=== PATIENT | female | born 1995 | race Caucasian/White ===

== ENCOUNTER 2016-11-12 17:00 | Emergency (ER) | payer SELFPAY ==
[~2016-11-12] VITALS: Ht 180.3 cm; Wt 69.4 kg
[2016-11-12] MEDS ORDERED: SODIUM CHLORIDE 0.9% 1,000 ML IV ONE (17:24)
[2016-11-12] MEDS ORDERED: FAMOTIDINE 20 MG/2 ML IVP ONE (17:30)
[2016-11-12] MEDS ORDERED: ONDANSETRON 2MG/ML, 2ML IVPush ONE (17:30)
[2016-11-12] MEDS ORDERED: SODIUM CHLORIDE 0.9% 1,000ML IVBOLUS ONE (17:30)
[2016-11-12 18:34] LABS: BLOOD UREA NITROGEN 6 mg/dL (7-18)
[2016-11-12 18:54] LABS: ASPARTATE AMINO TRANSFERASE 16 U/L (15-37)
[2016-11-12] MEDS ORDERED: ONDANSETRON ODT 4 MG ONE (19:41)
[2016-11-12 20:37] VITALS: BP 119/73
[2016-11-12] MEDS ORDERED: ONDANSETRON ODT 4 MG PO ONE (21:00)
== END 2016-11-12 21:27 | disposition home or self-care (01) ==
LOC: ED 21:15
DX: O26.891 Other specified pregnancy related conditions, first trimester (principal); O21.9 Vomiting of pregnancy, unspecified; R11.0 Nausea; Z3A.01 Less than 8 weeks gestation of pregnancy
CPT/HCPCS: 36415; 76700; 76801; 80053; 81003; 83690; 84702; 85025; 99285; Q0162

== ENCOUNTER 2017-03-04 15:45 | Emergency (ER) | payer MEDICAID ==
[~2017-03-04] VITALS: Ht 177.8 cm; Wt 74.9 kg
[2017-03-04] MEDS ORDERED: SODIUM CHLORIDE 0.9% 1,000 ML IV ONE (16:12)
[2017-03-04] MEDS ORDERED: ONDANSETRON 2MG/ML, 2ML ONE ×2 (16:18→18:29)
[2017-03-04 16:27] LABS: HEMATOCRIT 42.3 % (34.6-47.8); HEMOGLOBIN 13.9 g/dL (11.7-16.4); WHITE BLOOD COUNT 17.2 x10^3/uL (3.4-10)
[2017-03-04] MEDS ORDERED: SODIUM CHLORIDE FLUSH 10ML SYR IVF ONE (16:30)
[2017-03-04] MEDS ORDERED: ONDANSETRON 2MG/ML, 2ML IVPush ONE ×2 (16:30→18:30)
[2017-03-04] MEDS ORDERED: SODIUM CHLORIDE 0.9% 1,000ML IVBOLUS ONE ×2 (16:30→18:30)
[2017-03-04 16:38] LABS: ASPARTATE AMINO TRANSFERASE 20 U/L (15-37); BLOOD UREA NITROGEN 7 mg/dL (7-18)
[2017-03-04 18:33] VITALS: BP 117/69
== END 2017-03-04 19:12 | disposition home or self-care (01) ==
LOC: ED 16:23
DX: O23.12 Infections of bladder in pregnancy, second trimester (principal); O26.892 Other specified pregnancy related conditions, second trimester; O21.9 Vomiting of pregnancy, unspecified; R11.0 Nausea; Z3A.22 22 weeks gestation of pregnancy
CPT/HCPCS: 36415; 76700; 76815; 80053; 81001; 83690; 85025; 87086; 93005; 96361; 96374; 96376; 99285; J2405; J7030

== ENCOUNTER 2017-06-26 16:21 | Inpatient (IN) | payer MEDICAID ==
[~2017-06-26] VITALS: Ht 175.3 cm; Wt 87.0 kg
[~2017-06-26 16:21] MED LIST: METOCLOPRAMIDE 5 MG/ML, 2ML ONE; PROPOFOL 10 MG/ML, 20ML ONE; SUCCINYLCHOLINE 20 MG/ML, 10ML ONE
[2017-06-26] MEDS ORDERED: OXYTOCIN 30U/ 0.9% NaCL 500ML 500 ML IV ONE (16:31)
[2017-06-26] MEDS ORDERED: SODIUM CITRATE/CITRIC ACID 30 ML UDC ONE (16:50)
[2017-06-26] MEDS ORDERED: METOCLOPRAMIDE 5 MG/ML, 2ML ONE (16:50)
[2017-06-26] MEDS ORDERED: ONDANSETRON 2MG/ML, 2ML ONE (16:54)
[2017-06-26] MEDS ORDERED: FENTANYL PF 100 MCG/2ML ONE ×3 (16:54→19:19)
[2017-06-26] MEDS ORDERED: PHENYLEPHRINE 10 MG/ML ONE (16:54)
[2017-06-26] MEDS ORDERED: OXYTOCIN 10 UNITS/ML, 1ML ONE (16:54)
[2017-06-26] MEDS ORDERED: EPHEDRINE 50 MG/ML, 1ML ONE (16:54)
[2017-06-26] MEDS ORDERED: DEXAMETHASONE 4 MG/ML, 1ML ONE (16:54)
[2017-06-26] MEDS ORDERED: KETOROLAC 30 MG/1 ML ONE (16:54)
[2017-06-26] MEDS ORDERED: SODIUM BICARBONATE 1 MEQ/ML, 50ML VIAL ONE (16:54)
[2017-06-26] MEDS ORDERED: CEFAZOLIN 1,000 MG ONE (16:54)
[2017-06-26 16:57] LABS: BASOPHILS % (AUTO) 0 % (0-1); EOSINOPHILS # (AUTO) 0.01 x10^3/uL (0-0.4); EOSINOPHILS % (AUTO) 0 % (1-7); LYMPHOCYTES # (AUTO) 1.78 x10^3/uL (1-3.4); LYMPHOCYTES % (AUTO) 12 % (22-44); MD NO; MEAN CORPUSCULAR HEMOGLOBIN 30.1 pg (27.0-34.8); MEAN CORPUSCULAR HGB CONC 33.1 g/dL (32.4-35.8); MEAN CORPUSCULAR VOLUME 90.9 fL (80-100); MEAN PLATELET VOLUME 11.1 fL (7.4-10.4); MONOCYTES # (AUTO) 0.72 x10^3/uL (0.2-0.8); MONOCYTES % (AUTO) 5 % (2-9); NEUTROPHILS # (AUTO) 12.92 x10^3/uL (1.8-6.8); NEUTROPHILS % (AUTO) 84 % (42-75); PLATELET COUNT 188 x10^3/uL (130-400); RED CELL DISTRIBUTION WIDTH 13.5 % (9.6-15.2)
[2017-06-26] MEDS ORDERED: SODIUM CITRATE/CITRIC ACID 30 ML UDC PO PRN (17:00)
[2017-06-26] MEDS ORDERED: METOCLOPRAMIDE 5 MG/ML, 2ML IVPush PRN (17:00)
[2017-06-26] MEDS ORDERED: NEWBORN KIT ONE (17:02)
[2017-06-26 17:05] LABS: ALANINE AMINOTRANSFERASE 11 U/L (12-78); ALBUMIN 2.5 g/dL (3.4-5.0); ANION GAP 9 mmol/L (5-15); CALCIUM 8.3 mg/dL (8.5-10.1); CHLORIDE 107 mmol/L (98-107); CREATININE 0.61 mg/dL (0.55-1.02)
[2017-06-26 17:07] LABS: ALKALINE PHOSPHATASE 118 U/L (45-117); BILIRUBIN,TOTAL 0.3 mg/dL (0.2-1.0); TOTAL PROTEIN 6.6 g/dL (6.4-8.2)
[2017-06-26] MEDS ORDERED: OXYTOCIN 30U/ 0.9% NaCL 500ML 500 ML ONE (17:21)
[2017-06-26 17:27] LABS: AMPHETAMINE SCREEN, URINE Negative (Negative); BARBITURATE SCREEN, URINE Negative (Negative); BENZODIAZEPINE SCREEN, URINE Negative (Negative); CANNABINOID SCREEN, URINE Positive (Negative); COCAINE SCREEN, URINE Negative (Negative); METHADONE SCREEN, URINE Negative (Negative); OPIATE SCREEN, URINE Negative (Negative)
[2017-06-26] MEDS: LACTATED RINGERS 1,000 ML IV SCH ×3 (17:55→19:15)
[2017-06-26 17:57] LABS: INTERNATIONAL NORMALIZED RATIO 0.87 (0.93-1.1); PROTHROMBIN TIME 9.1 Seconds (9.6-11.5)
[2017-06-26] MEDS ORDERED: MISOPROSTOL 200 MCG TABLET SL PRN (18:00)
[2017-06-26] MEDS ORDERED: IBUPROFEN 600 MG TABLET PO PRN (18:00)
[2017-06-26] MEDS ORDERED: ONDANSETRON 2MG/ML, 2ML IV PRN (18:00)
[2017-06-26] MEDS ORDERED: OXYcodone/APAP 5/325MG TABLET PO PRN (18:00)
[2017-06-26] MEDS ORDERED: ACETAMINOPHEN 325 MG TABLET PO PRN (18:00)
[2017-06-26] MEDS ORDERED: morphine SULFATE 10 MG/ML, 1ML IVPush PRN (18:00)
[2017-06-26] MEDS ORDERED: OXYcodone 5 MG/5 ML ORAL.SOL UDC PO PRN (18:30)
[2017-06-26] MEDS ORDERED: LABETALOL 5MG/ML, 20ML IV PRN (18:30)
[2017-06-26] MEDS ORDERED: ALBUTEROL SULFATE 2.5 MG/3 ML NPPB PRN (18:30)
[2017-06-26] MEDS ORDERED: hydrALAzine 20 MG/ML, 1ML IV PRN (18:30)
[2017-06-26] MEDS ORDERED: EPHEDRINE 50 MG/ML, 1ML IVPush PRN (18:30)
[2017-06-26] MEDS ORDERED: MEPERIDINE/PF 25MG/0.5ML IVPush PRN (18:30)
[2017-06-26] MEDS ORDERED: FENTANYL PF 100 MCG/2ML IV PRN (18:30)
[2017-06-26] MEDS ORDERED: HYDROmorphone 1 MG/ML, 1ML IV PRN (18:30)
[2017-06-26] MEDS ORDERED: MIDAZOLAM 1 MG/ML, 2ML IV PRN (18:30)
[2017-06-26] MEDS ORDERED: HYDROcodone/APAP 7.5-325MG/15ML UDC PO PRN (18:30)
[2017-06-26] MEDS ORDERED: ONDANSETRON 2MG/ML, 2ML IVPush PRN (18:30)
[2017-06-26] MEDS ORDERED: OXYcodone 5 MG/5 ML ORAL.SOL UDC ONE (18:39)
[2017-06-26] MEDS: OXYTOCIN 30U/ 0.9% NaCL 500ML 500 ML IV SCH (19:11)
[2017-06-26 20:15] VITALS: BP 132/86
[2017-06-27 00:10] VITALS: BP 112/64
[2017-06-27] MEDS: KETOROLAC 30 MG/1 ML IV SCH ×5 (00:15→18:16)
[2017-06-27] MEDS: OXYcodone IR 5MG TABLET PO PRN ×5 (00:15→18:16)
[2017-06-27] MEDS: LACTATED RINGERS 1,000 ML IV SCH ×6 (00:31→04:49)
[2017-06-27 03:07] LABS: MEAN CORPUSCULAR HEMOGLOBIN 30.3 pg (27.0-34.8); MEAN CORPUSCULAR HGB CONC 32.9 g/dL (32.4-35.8); MEAN CORPUSCULAR VOLUME 92.1 fL (80-100); MEAN PLATELET VOLUME 11.3 fL (7.4-10.4); PLATELET COUNT 174 x10^3/uL (130-400); RED CELL DISTRIBUTION WIDTH 13.7 % (9.6-15.2)
[2017-06-27 03:35] LABS: BASOPHILS # (AUTO) 0.01 x10^3/uL (0-0.1); BASOPHILS % (AUTO) 0 % (0-1); EOSINOPHILS % (AUTO) 0 % (1-7); LYMPHOCYTES # (AUTO) 1.12 x10^3/uL (1-3.4); LYMPHOCYTES % (AUTO) 4 % (22-44); MD SCAN; MONOCYTES # (AUTO) 0.37 x10^3/uL (0.2-0.8); MONOCYTES % (AUTO) 1 % (2-9); NEUTROPHILS # (AUTO) 24.76 x10^3/uL (1.8-6.8); NEUTROPHILS % (AUTO) 94 % (42-75)
[2017-06-27] MEDS: OXYTOCIN 30U/ 0.9% NaCL 500ML 500 ML IV SCH ×2 (03:55→04:50)
[2017-06-27 04:15] VITALS: BP 124/73
[2017-06-27] MEDS: DOCUSATE 100 MG CAPSULE PO PRN (08:20)
[2017-06-27] MEDS: PRENATAL VIT/IRON/FA 1 EACH TABLET PO SCH (08:20)
[2017-06-27 08:24] VITALS: BP 111/65
[2017-06-27 12:30] VITALS: BP 112/73
[2017-06-27 16:28] VITALS: BP 122/77
[2017-06-27 19:55] VITALS: BP 112/69
[2017-06-28] MEDS: KETOROLAC 30 MG/1 ML IV SCH ×3 (00:19→12:58)
[2017-06-28] MEDS: OXYcodone IR 5MG TABLET PO PRN ×3 (00:19→22:05)
[2017-06-28 08:00] VITALS: BP 115/70
[2017-06-28] MEDS: PRENATAL VIT/IRON/FA 1 EACH TABLET PO SCH (08:10)
[2017-06-28] MEDS: DOCUSATE 100 MG CAPSULE PO PRN ×2 (08:10→22:05)
[2017-06-28] MEDS ORDERED: IBUPROFEN 600 MG TABLET PO PRN (18:00)
[2017-06-28 20:20] VITALS: BP 116/69
[2017-06-29] MEDS: OXYcodone IR 5MG TABLET PO PRN (04:59)
[2017-06-29 07:00] VITALS: BP 116/71
[2017-06-29] MEDS: PRENATAL VIT/IRON/FA 1 EACH TABLET PO SCH (07:32)
[2017-06-29] MEDS: DOCUSATE 100 MG CAPSULE PO PRN (07:32)
[2017-06-29] MEDS ORDERED: OXYC-302 PO (14:15)
[2017-06-29] MEDS ORDERED: IBUP-1222 PO (14:15)
== END 2017-06-29 14:31 | disposition home or self-care (01) | DRG 766 ==
LOC: LDOP 16:21 → LDIP 16:31 → 2NW 19:40
PROVIDERS: ADMIT Obstetrics & Gynecology; ATTEND Obstetrics & Gynecology
PROC: 10D00Z1 Extraction of Products of Conception, Low, Open Approach (ICD-10-PCS; principal; 2017-06-26)
DX: O45.93 Premature separation of placenta, unspecified, third trimester (principal); F17.200 Nicotine dependence, unspecified, uncomplicated; N93.9 Abnormal uterine and vaginal bleeding, unspecified; O99.334 Smoking (tobacco) complicating childbirth; Z37.0 Single live birth; Z3A.38 38 weeks gestation of pregnancy
CPT/HCPCS: 36415; 80053; 80307; 84550; 85025; 85384; 85610; 85730; 86850; 86900; 86923; 88307; J0690; J1100; J1885; J2405; J2704; J3010; J0330; J2370; J2590; J2765; J7120

== ENCOUNTER 2020-06-19 14:07 | Outpatient (CLI) | payer MEDICAID ==
[~2020-06-19] VITALS: Ht 180.3 cm; Wt 75.4 kg
[~2020-06-19 14:07] MED LIST changes: +IBUP-1222 PO; -METOCLOPRAMIDE 5 MG/ML, 2ML ONE; +OXYC1TAB14 PO; -PROPOFOL 10 MG/ML, 20ML ONE; -SUCCINYLCHOLINE 20 MG/ML, 10ML ONE
[2020-06-19 14:39] VITALS: BP 129/85
[2020-06-19 15:09] LABS: MICROSCOPIC INDICATED
[2020-06-19 15:18] LABS: AMPHETAMINE SCREEN, URINE Positive (Negative); BARBITURATE SCREEN, URINE Negative (Negative); BENZODIAZEPINE SCREEN, URINE Negative (Negative); CANNABINOID SCREEN, URINE Positive (Negative); COCAINE SCREEN, URINE Negative (Negative); METHADONE SCREEN, URINE Negative (Negative); OPIATE SCREEN, URINE Negative (Negative)
[2020-06-19 16:14] LABS: CLUE CELLS PRESENT (NONE SEEN); WET PREP WBCS MANY (FEW)
[2020-06-19] MEDS ORDERED: PREN1TAB10 PO (16:40)
[2020-06-19] MEDS ORDERED: NITR100C56 PO (17:20)
[2020-06-19] MEDS ORDERED: METR500T PO (17:25)
[2020-06-19] MEDS ORDERED: AZIT500T10 PO (17:25)
== END 2020-06-19 17:33 | disposition home or self-care (01) ==
LOC: LDOP 14:07
PROVIDERS: ATTEND Obstetrics & Gynecology
DX: O26.893 Other specified pregnancy related conditions, third trimester (principal); R10.9 Unspecified abdominal pain; Z3A.35 35 weeks gestation of pregnancy
CPT/HCPCS: 59025; 80307; 81001; 87077; 87081; 87086; 87147; 87210; 87491; 87591; 87808

== ENCOUNTER 2020-07-08 13:31 | Inpatient (IN) | payer MEDICAID ==
[~2020-07-08] VITALS: Ht 180.3 cm; Wt 81.8 kg
[~2020-07-08 13:31] MED LIST changes: +AZIT500T10 PO; +CALCIUM CHLORIDE 10%, 10ML SYR ONE; +CEFAZOLIN 1,000 MG ONE; +EPHEDRINE 50 MG/ML, 1ML ONE; +METR500T PO; +MISOPROSTOL 200 MCG TABLET ONE; +NITR100C56 PO; +ONDANSETRON 2MG/ML, 2ML ONE; +PHENYLEPHRINE 10 MG/ML ONE; +PREN1TAB10 PO
[2020-07-08] MEDS ORDERED: METOCLOPRAMIDE 5 MG/ML, 2ML ONE (13:53)
[2020-07-08] MEDS ORDERED: OXYTOCIN 30U/ 0.9% NaCL 500ML 500 ML ONE ×2 (13:53→14:17)
[2020-07-08] MEDS ORDERED: SODIUM CITRATE/CITRIC ACID 15 ML UDC ONE (13:53)
[2020-07-08] MEDS ORDERED: morphine SULFATE/PF 0.5 MG/ML, 10ML ONE (13:55)
[2020-07-08] MEDS ORDERED: LACTATED RINGERS 1,000 ML IVBOLUS ONE (14:00)
[2020-07-08 14:08] LABS: AMPHETAMINE SCREEN, URINE Positive (Negative); BARBITURATE SCREEN, URINE Negative (Negative); BENZODIAZEPINE SCREEN, URINE Negative (Negative); CANNABINOID SCREEN, URINE Positive (Negative); COCAINE SCREEN, URINE Negative (Negative); METHADONE SCREEN, URINE Negative (Negative); OPIATE SCREEN, URINE Negative (Negative)
[2020-07-08 14:16] LABS: MEAN CORPUSCULAR HEMOGLOBIN 26.2 pg (27.0-34.8); PLATELET COUNT 253 x10^3/uL (130-400); RED BLOOD COUNT 3.43 x10^6/uL (3.82-5.3); RED CELL DISTRIBUTION WIDTH 15.8 % (9.6-15.2)
[2020-07-08 14:17] LABS: MD YES
[2020-07-08] MEDS ORDERED: NEWBORN KIT ONE (14:17)
[2020-07-08] MEDS ORDERED: SODIUM CITRATE/CITRIC ACID 30 ML UDC PO ONE (14:30)
[2020-07-08] MEDS ORDERED: METOCLOPRAMIDE 5 MG/ML, 2ML IV ONE (14:30)
[2020-07-08 14:39] LABS: BAND#(MANUAL) 0.84 x10^3/uL; BANDS%(MANUAL) 3 % (0-7); LYMPH#(MANUAL) 0.84 x10^3/uL (1-3.4); LYMPHS% (MANUAL) 3 % (22-44); MONOS#(MANUAL) 0.84 x10^3/uL (0.3-2.7); MONOS% (MANUAL) 3 % (2-9); SEG#(MANUAL) 25.39 x10^3/uL (1.8-6.8); SEGS% (MANUAL) 91 % (42-75)
[2020-07-08 14:40] LABS: <PLATELET ESTIMATE> ADEQUATE; ANISOCYTOSIS 1+; OVALOCYTES 1+
[2020-07-08 14:41] LABS: LARGE PLATELETS 1+; POLYCHROMASIA 1+
[2020-07-08] MEDS ORDERED: PHENYLEPHRINE 10 MG/ML ONE (14:54)
[2020-07-08] MEDS ORDERED: ONDANSETRON 2MG/ML, 2ML ONE (14:54)
[2020-07-08] MEDS ORDERED: EPHEDRINE 50 MG/ML, 1ML ONE (14:54)
[2020-07-08] MEDS ORDERED: OXYTOCIN 10 UNITS/ML, 1ML ONE (14:54)
[2020-07-08] MEDS ORDERED: CEFAZOLIN 1,000 MG ONE (14:54)
[2020-07-08] MEDS ORDERED: WATER-INJECTION,STERILE 10 ML IV ONE (14:54)
[2020-07-08] MEDS ORDERED: CALCIUM CHLORIDE 10%, 10ML SYR ONE (14:55)
[2020-07-08] MEDS ORDERED: EPINEPHRINE 1 MG/ML, 1ML ONE (14:55)
[2020-07-08] MEDS ORDERED: SIMETHICONE 80 MG CHEW TAB PO PRN (15:30)
[2020-07-08] MEDS ORDERED: KETOROLAC 30 MG/1 ML IM SCH (15:30)
[2020-07-08] MEDS: LACTATED RINGERS 1,000 ML IV SCH ×4 (15:30→23:04)
[2020-07-08] MEDS ORDERED: METHYLERGONOVINE 0.2 MG/ML IM PRN (15:30)
[2020-07-08] MEDS ORDERED: MISOPROSTOL 200 MCG TABLET PR PRN (15:30)
[2020-07-08] MEDS ORDERED: OXYcodone/APAP 5/325MG TABLET PO PRN (15:30)
[2020-07-08] MEDS: OXYTOCIN 30U/ 0.9% NaCL 500ML 500 ML IV SCH (15:40)
[2020-07-08] MEDS ORDERED: OXYcodone 5 MG/5 ML ORAL.SOL UDC PO PRN (16:30)
[2020-07-08] MEDS ORDERED: OXYcodone 5 MG/5 ML ORAL.SOL UDC ONE (16:34)
[2020-07-08 16:52] LABS: MEAN CORPUSCULAR HEMOGLOBIN 26.3 pg (27.0-34.8); MEAN CORPUSCULAR HGB CONC 31.5 g/dL (32.4-35.8); MEAN PLATELET VOLUME 11.4 fL (7.4-10.4); PLATELET COUNT 235 x10^3/uL (130-400); RED BLOOD COUNT 4.28 x10^6/uL (3.82-5.3); RED CELL DISTRIBUTION WIDTH 16.2 % (9.6-15.2)
[2020-07-08] MEDS ORDERED: KETOROLAC 30 MG/1 ML ONE (16:58)
[2020-07-08] MEDS ORDERED: MEPERIDINE/PF 25MG/0.5ML IM PRN (17:00)
[2020-07-08] MEDS ORDERED: MEPERIDINE/PF 50 MG/ML IM PRN (17:00)
[2020-07-08 17:05] LABS: MD YES
[2020-07-08 17:50] LABS: BAND#(MANUAL) 1.87 x10^3/uL; BANDS%(MANUAL) 6 % (0-7); LYMPH#(MANUAL) 2.18 x10^3/uL (1-3.4); LYMPHS% (MANUAL) 7 % (22-44); MONOS#(MANUAL) 2.18 x10^3/uL (0.3-2.7); MONOS% (MANUAL) 7 % (2-9); SEG#(MANUAL) 24.96 x10^3/uL (1.8-6.8); SEGS% (MANUAL) 80 % (42-75)
[2020-07-08 17:51] LABS: ANISOCYTOSIS 1+; POLYCHROMASIA 1+
[2020-07-08 17:52] LABS: <PLATELET ESTIMATE> ADEQUATE; LARGE PLATELETS 1+; ROULEAUX 1+
[2020-07-08] MEDS ORDERED: HYDROmorphone 1 MG/ML, 1ML INJ ONE (17:54)
[2020-07-08 18:00] VITALS: BP 134/84
[2020-07-08] MEDS ORDERED: HYDROmorphone 2 MG/ML, 1ML IVPush PRN (18:00)
[2020-07-08 20:00] VITALS: BP 124/71
[2020-07-08] MEDS: KETOROLAC 30 MG/1 ML IV SCH (22:23)
[2020-07-09] VITALS: BP 111/69
[2020-07-09] MEDS: OXYTOCIN 30U/ 0.9% NaCL 500ML 500 ML IV SCH (00:44)
[2020-07-09] MEDS: OXYcodone/APAP 5/325MG TABLET PO PRN ×5 (03:03→22:04)
[2020-07-09 04:17] VITALS: BP 125/77
[2020-07-09] MEDS: KETOROLAC 30 MG/1 ML IV SCH ×4 (04:18→21:55)
[2020-07-09 05:43] LABS: MEAN CORPUSCULAR HEMOGLOBIN 26.5 pg (27.0-34.8); MEAN CORPUSCULAR HGB CONC 32.4 g/dL (32.4-35.8); PLATELET COUNT 203 x10^3/uL (130-400); RED BLOOD COUNT 2.89 x10^6/uL (3.82-5.3); RED CELL DISTRIBUTION WIDTH 15.8 % (9.6-15.2)
[2020-07-09 06:44] LABS: MD YES
[2020-07-09 06:45] LABS: ANISOCYTOSIS 1+; BAND#(MANUAL) 0.73 x10^3/uL; BANDS%(MANUAL) 3 % (0-7); LYMPH#(MANUAL) 1.69 x10^3/uL (1-3.4); LYMPHS% (MANUAL) 7 % (22-44); MONOS#(MANUAL) 1.21 x10^3/uL (0.3-2.7); MONOS% (MANUAL) 5 % (2-9); POLYCHROMASIA 1+; SEG#(MANUAL) 20.57 x10^3/uL (1.8-6.8); SEGS% (MANUAL) 85 % (42-75)
[2020-07-09 06:46] LABS: <PLATELET ESTIMATE> ADEQUATE; LARGE PLATELETS 1+; OVALOCYTES 1+
[2020-07-09] MEDS: LACTATED RINGERS 1,000 ML IV SCH (07:30)
[2020-07-09 08:15] VITALS: BP 115/78
[2020-07-09] MEDS: DOCUSATE 100 MG CAPSULE PO PRN ×2 (08:34→21:55)
[2020-07-09] MEDS: PRENATAL VIT/IRON/FA 1 EACH TABLET PO SCH (08:35)
[2020-07-09 12:46] VITALS: BP 131/71
[2020-07-09 16:19] VITALS: BP 133/80
[2020-07-09 20:00] VITALS: BP 146/76
[2020-07-10] MEDS: KETOROLAC 30 MG/1 ML IV SCH ×2 (05:10→11:04)
[2020-07-10] MEDS: OXYcodone/APAP 5/325MG TABLET PO PRN ×2 (05:11→09:23)
[2020-07-10 09:00] VITALS: BP 134/89
[2020-07-10] MEDS: PRENATAL VIT/IRON/FA 1 EACH TABLET PO SCH (09:00)
[2020-07-10] MEDS: DOCUSATE 100 MG CAPSULE PO PRN (09:23)
[2020-07-10] MEDS ORDERED: OXYC1TAB14 PO (12:30)
[2020-07-10] MEDS ORDERED: DIPH,PERTUSS(ACELL),TET VAC/PF NC IM-VACC ONE (13:19)
== END 2020-07-10 13:40 | disposition home or self-care (01) | DRG 786 ==
LOC: LDOP 13:31 → LDIP 13:53 → 2NW 17:32
PROVIDERS: ADMIT Obstetrics & Gynecology Female Pelvic Medicine and Reconstructive Surgery; ATTEND Obstetrics & Gynecology Female Pelvic Medicine and Reconstructive Surgery
PROC: 10D00Z1 Extraction of Products of Conception, Low, Open Approach (ICD-10-PCS; principal; 2020-07-08)
DX: O34.211 Maternal care for low transverse scar from previous cesarean delivery (principal); O45.93 Premature separation of placenta, unspecified, third trimester; O99.324 Drug use complicating childbirth; Z20.822 Contact with and (suspected) exposure to COVID-19; O36.8130 Decreased fetal movements, third trimester, not applicable or unspecified; F15.90 Other stimulant use, unspecified, uncomplicated; O76 Abnormality in fetal heart rate and rhythm complicating labor and delivery; O99.334 Smoking (tobacco) complicating childbirth; Z37.0 Single live birth; Z3A.37 37 weeks gestation of pregnancy; Z79.899 Other long term (current) drug therapy
CPT/HCPCS: 36415; 80307; 85025; 86592; 86850; 86900; 86923; 87635; 87806; 88307; G0378; J0171; J0690; J1170; J1885; J2175; J2274; J2405; G0475; J2370; J2590; J2765; J7120